=== PATIENT | female | born 1965 | race Native Hawaiian/Other Pacific Islander ===

== ENCOUNTER 2021-07-28 13:45 | Outpatient (CLI) | payer OTHER ==
[~2021-07-28 13:45] MED LIST: AMOX500C85 PO; CARBINOXAMIN PO; CEPACOL MT; MOME50SP; NEXIUM40 M1 PO; VIVELLE-DOT0.025 MG TD
== END 2021-07-28 21:48 | disposition home or self-care (01) ==
LOC: RAD 13:45
PROVIDERS: ATTEND Obstetrics & Gynecology
DX: Z13.820 Encounter for screening for osteoporosis (principal); M85.88 Other specified disorders of bone density and structure, other site; N95.1 Menopausal and female climacteric states